=== PATIENT | male | born 1995 | race Caucasian/White ===

== ENCOUNTER → 2016-08-29 | Outpatient (CLI) | payer OTHER ==
[~2016-08-29] MED LIST: AMLO10TA2 PO; AMOX500C2 PO
--- OUTSIDE RECORDS SUMMARY | 2016-08-29 20:30 | XMS REPORT | Continuity of Care Document ---
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 PCP Insurance Providers Payer Name Policy Number Subscriber Name Relationship Unknown Advance Directives Directive Response Recorded Date/Time Advance Directives No 07/05/16 9:05am Resuscitation Status Full Code 07/05/16 9:05am Chief Complaint and Reason for Visit Chief Complaint Fever-Adult/Adol Reason for Visit Nephritic syndrome Renal insufficiency Splenomegaly [id number] Problems Active Problems Medical Problem Onset Date [...] GIVEN Prescriptions See Medication Section Referrals [facility] - Primary Care Physician Additional Instructions/Education Contact Dr. Mckinney's office first thing on Friday morning for a follow-up appointment that same day. His office number is [phone]. Drink plenty of clear liquids. Use only Tylenol for treatment of pain and fever. Avoid use of NSAID medications such as ibuprofen, aspirin or naproxen. Return to the emergency room if symptoms worsen, present to a tertiary care hospital with nephrology services such as [facility] or [facility] if symptoms are worsening. Start your amlodipine [...] - 99.5) 07/05/2016 9:05am Temperature (Calculated Celsius) 37.77107 degrees C (36.4 - 37.5) 07/05/2016 9:05am [...] 4 inches 07/05/2016 9:05am Height (Calculated Centimeters) 193.130305 cm 07/05/2016 9:05am Weight (Pounds) 173 pounds 07/05/2016 9:05am Weight (Calculated Kilograms) 78.943705 kilograms 07/05/2016 9:05am Capillary Refill Capillary Refill [...] 5-9 07/05/2016 9:20am 07/05/2016 9:49am Urine Specific [place] 1.020 1.016-1.022 07/05/2016 9:20am 2015 9:49am Urine [...] Date Attending Provider Departed Emergency Room [facility] 07/05/16 9:05am 07/05 2:51pm JESSA EDUARDO MD Recent Diagnosis
[2016-08-29 20:55] LABS: BILIRUBIN,URINE NEGATIVE (NEGATIVE); KETONES,URINE NEGATIVE (NEGATIVE); LEUKOCYTE ESTERASE ,URINE NEGATIVE (NEGATIVE); NITRITE,URINE NEGATIVE (NEGATIVE); PH,URINE 7 (5-9); PROTEIN,URINE 4+ (NEGATIVE); UROBILINOGEN,URINE NORMAL (NORMAL)
[2016-08-29 21:17] LABS: ANION GAP 10 MMOL/L (5-14); BLOOD UREA NITROGEN 28 MG/DL (7-18); BUN/CREATININE RATIO 19; CALCIUM 8.8 MG/DL (8.5-10.1); CARBON DIOXIDE 23 MMOL/L (21-32); CHLORIDE 108 MMOL/L (98-107); CREATININE SERUM 1.44 MG/DL (0.60-1.30); GFR ESTIMATED > 60; GLUCOSE 89 MG/DL (70-105); POTASSIUM 4.5 MMOL/L (3.6-5.0); SODIUM 141 MMOL/L (135-145)
== END ==
LOC: LAB 20:25
PROVIDERS: ATTEND Internal Medicine
DX: R31.29 Other microscopic hematuria (principal); R80.9 Proteinuria, unspecified; B27.90 Infectious mononucleosis, unspecified without complication
CPT/HCPCS: 36415; 80048; 81000; 82043; 84156

== ENCOUNTER → 2016-08-29 | Outpatient (CLI) | payer OTHER ==
--- OUTSIDE RECORDS SUMMARY | 2016-08-29 08:54 | XMS REPORT | Continuity of Care Document ---
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 PCP Insurance Providers Payer Name Policy Number Subscriber Name Relationship Unknown Advance Directives Directive Response Recorded Date/Time Advance Directives No 07/05/16 9:05am Resuscitation Status Full Code 07/05/16 9:05am Chief Complaint and Reason for Visit Chief Complaint Fever-Adult/Adol Reason for Visit Nephritic syndrome Renal insufficiency Splenomegaly [id number] Problems Active Problems Medical Problem Onset Date Status Hepatomegaly Unknown Acute Nephritic syndrome Unknown Acute Renal insufficiency Unknown Acute Splenomegaly Unknown Acute Medications Current Home Medications Medication Dose Units Route Directions Days/Qty Instructions Start Date Amlodipine Besylate 10 Mg 10 Mg Oral Daily 20 07/05/16 Social History Social History Problem Response Recorded Date/Time Alcohol Use Denies Use 07/05/2016 9:05am Recreational Drug Use No 07/05/2016 9:05am Recent Foreign Travel No 07/05/2016 9:05am Recent Infectious Disease Exposure No 07/05/2016 9:05am Hospitalization with Isolation Denies 07/05/2016 9:05am Smoking Status Never a Smoker 07/05/2016 9:05am Recent Hopitalizations No 07/05/2016 9:05am Hospitalization with Isolation Denies 07/05/2016 9:05am Query Response Start Date Stop Date Smoking Status Never a Smoker Hospital Discharge Instructions No hospital discharge instructions. Plan of Care Discharge Date 07/05/16 2:51pm Disposition 01 HOME, SELF-CARE Condition at Discharge Stable Instructions/Education Provided NO INSTRUCTIONS GIVEN Prescriptions See Medication Section Referrals [facility] - Primary Care Physician Additional Instructions/Education Contact Dr. Mckinney's office first thing on Friday morning for a follow-up appointment that same day. His office number is [phone]. Drink plenty of clear liquids. Use only Tylenol for treatment of pain and fever. Avoid use of NSAID medications such as ibuprofen, aspirin or naproxen. Return to the emergency room if symptoms worsen, present to a tertiary care hospital with nephrology services such as [facility] or [facility] if symptoms are worsening. Start your amlodipine prescription tomorrow. For further information on nephritic syndrome you may search reputable online resources. All discharge instructions reviewed with patient and/or family. Voiced understanding. Functional Status No functional status results. Allergies, Adverse Reactions, Alerts Allergen Type Severity Reaction Status Last Updated ETHANOL/ALCOHALIC BEVERAGES Allergy Intermediate HIVES Active 07/05/16 Immunizations No immunization records. Vital Signs Acute Vital Signs Vital Response Date/Time Temperature (Fahrenheit) 99.2 degrees F (97.6 - 99.5) 07/05/2016 9:05am Temperature (Calculated Celsius) 37.36972 degrees C (36.4 - 37.5) 07/05/2016 9:05am Pulse Rate (adult) 96 bpm (60 - 90) 07/05/2016 9:05am Respiratory Rate 16 bpm (12 - 24) 07/05/2016 9:05am O2 Sat by Pulse Oximetry 99 % (88 - 100) 07/05/2016 9:05am Blood Pressure 165/94 mm Hg 07/05/2016 9:05am Blood Pressure Mean 117 mm Hg 07/05/2016 9:05am Pain Numeric Pain Scale 0-No Pain 07/05/2016 9:05am Height (Feet) 6 feet 07/05/2016 9:05am Height (Inches) 4 inches 07/05/2016 9:05am Height (Calculated Centimeters) 193.239110 cm 07/05/2016 9:05am Weight (Pounds) 173 pounds 07/05/2016 9:05am Weight (Calculated Kilograms) 78.154721 kilograms 07/05/2016 9:05am Capillary Refill Capillary Refill Less Than 3 Seconds 07/05/2016 9:05am Height 6 ft 4 in Weight 173 lb Body Mass Index 21.1 kg/m^2 Results Laboratory Results Test Name Result Units Flags Reference Collection Date/Time Result Date/ Time Comments White Blood Count 4.3 10^3/uL 4.3-11.0 07/05/2016 9:20am 07/05/2016 9: 37am Red Blood Count 4.93 10^6/uL 4.35-5.85 07/05/2016 9:20am 07/05/2016 9: 37am Hemoglobin 13.7 G/DL 13.3-17.7 07/05/2016 9:20am 07/05/2016 9:37am Hematocrit 37 % L 40-54 07/05/2016 9:20am 07/05/2016 9:37am Mean Corpuscular Volume 76 FL L 80-99 07/05/2016 9:20am 07/05/2016 9: 37am Mean Corpuscular Hemoglobin 28 PG 25-34 07/05/2016 9:20am 07/05/2016 9: 37am Mean Corpuscular Hemoglobin Concent 37 G/DL H 32-36 07/05/2016 9:20am 9:37am Red Cell Distribution Width 12.9 % 10.0-14.5 07/05/2016 9:20am 2015 9:37am Platelet Count 139 10^3/uL 130-400 07/05/2016 9:20am 07/05/2016 9:37am Mean Platelet Volume 10.8 FL H 7.4-10.4 07/05/2016 9:20am 07/05/2016 9: 37am Neutrophils (%) (Auto) 54 % 42-75 07/05/2016 9:20am 07/05/2016 9:37am Lymphocytes (%) (Auto) 27 % 12-44 07/05/2016 9:20am 07/05/2016 9:37am Monocytes (%) (Auto) 15 % H 0-12 07/05/2016 9:20am 07/05/2016 9:37am Eosinophils (%) (Auto) 1 % 0-10 07/05/2016 9:20am 07/05/2016 9:37am Basophils (%) (Auto) 2 % 0-10 07/05/2016 9:20am 07/05/2016 9:37am Neutrophils # (Auto) 2.3 X 10^3 1.8-7.8 07/05/2016 9:20am 07/05/2016 9: 37am Lymphocytes # (Auto) 1.2 X 10^3 1.0-4.0 07/05/2016 9:20am 07/05/2016 9: 37am Monocytes # (Auto) 0.7 X 10^3 0.0-1.0 07/05/2016 9:20am 07/05/2016 9: 37am Eosinophils # (Auto) 0.1 10^3/uL 0.0-0.3 07/05/2016 9:20am 07/05/2016 9 :37am Basophils # (Auto) 0.1 10^3/uL 0.0-0.1 07/05/2016 9:20am 07/05/2016 9: 37am Smear Scan OCCASIONAL REACTIVE LYMPH OBSERVED DURING SCAN. 2015 9:20am 07/05/2016 9:55am Erythrocyte Sedimentation Rate 32 MM/HR H 0-15 07/05/2016 9:20am 2015 10:01am Urine Color YELLOW 07/05/2016 9:20am 07/05/2016 9:49am Urine Clarity CLEAR 07/05/2016 9:20am 07/05/2016 9:49am Urine pH 6 5-9 07/05/2016 9:20am 07/05/2016 9:49am Urine Specific [place] 1.020 1.016-1.022 07/05/2016 9:20am 2015 9:49am Urine Protein 4+ NEGATIVE 07/05/2016 9:20am 07/05/2016 9:49am Urine Glucose (UA) NEGATIVE NEGATIVE 07/05/2016 9:20am 07/05/2016 9: 49am Urine RBC (Auto) 5+ * NEGATIVE 07/05/2016 9:2007/05/2016 9:49am Urine Ketones NEGATIVE NEGATIVE 07/05/2016 9:20am 07/05/2016 9:49am Urine Nitrite NEGATIVE NEGATIVE 07/05/2016 9:20am 07/05/2016 9:49am Urine Bilirubin NEGATIVE NEGATIVE 07/05/2016 9:20am 07/05/2016 9: 49am Urine Urobilinogen NORMAL MG/DL NORMAL 07/05/2016 9:20am 07/05/2016 9: 49am Urine Leukocyte Esterase 1+ * NEGATIVE 07/05/2016 9:2007/05/2016 9: 49am Urine RBC TNTC /HPF * 07/05/2016 9:20am 07/05/2016 9:49am Urine WBC 5-10 /HPF * 07/05/2016 9:20am 07/05/2016 9:49am Urine Bacteria FEW /HPF * 07/05/2016 9:20am 07/05/2016 9:49am Urine Crystals NONE /LPF 07/05/2016 9:20am 07/05/2016 9:49am Urine Casts NONE /LPF 07/05/2016 9:20am 07/05/2016 9:49am Urine Mucus NEGATIVE /LPF 07/05/2016 9:20am 07/05/2016 9:49am Urine Yeast FEW /HPF * 07/05/2016 9:20am 07/05/2016 9:49am Urine Culture Indicated YES 07/05/2016 9:2007/05/2016 9:49am Urine Protein 647 MG/DL H 6-12 07/05/2016 9:2007/05/2016 12:57pm Urine Creatinine 152 MG/DL H 30-125 07/05/2016 9:20am 07/05/2016 12:57pm Urine Protein/Creatinine Ratio 4.26 07/05/2016 9:20am 07/05/2016 12 :57pm Sodium Level 141 MMOL/L 135-145 07/05/2016 9:20am 07/05/2016 9:52am Potassium Level 4.0 MMOL/L 3.6-5.0 07/05/2016 9:20am 07/05/2016 9:52am Chloride Level 108 MMOL/L H 98-107 07/05/2016 9:20am 07/05/2016 9:52am Carbon Dioxide Level 24 MMOL/L 21-32 07/05/2016 9:20am 07/05/2016 9: 52am Anion Gap 9 MMOL/L 5-14 07/05/2016 9:20am 07/05/2016 9:52am Blood Urea Nitrogen 13 MG/DL -18 07/05/2016 9:20am 07/05/2016 9:52am Creatinine 1.40 MG/DL H 0.60-1.30 07/05/2016 9:20am 07/05/2016 9:52am BUN/Creatinine Ratio 9 07/05/2016 9:20am 07/05/2016 9:52am Estimat Glomerular Filtration Rate > 60 07/05/2016 9:20am 2015 9:52am GFR INTERPRETIVE DATA UNITS FOR ESTIMATED GFR (eGFR): mL/min/1.73 M2 REFERENCE RANGE FOR ESTIMATED GFR (eGFR) eGFR NORMAL eGFR >60 MODERATELY DECREASED eGFR 30-59 SEVERLY DECREASED eGFR 15-29 KIDNEY FAILURE <15 (OR DIALYSIS) Glucose Level 94 MG/DL 70-105 07/05/2016 9:20am 07/05/2016 9:52am Calcium Level 8.6 MG/DL 8.5-10.1 07/05/2016 9:20am 07/05/2016 9:52am Total Bilirubin 0.5 MG/DL 0.1-1.0 07/05/2016 9:20am 07/05/2016 9:52am Alkaline Phosphatase 58 U/L 40-136 07/05/2016 9:20am 07/05/2016 9:52am Aspartate Amino Transf (AST/SGOT) 35 U/L H 5-34 07/05/2016 9:20am 2015 9:52am Alanine Aminotransferase (ALT/SGPT) 26 U/L 0-55 07/05/2016 9:20am 07/05 9:52am Total Creatine Kinase 222 U/L H 30-200 07/05/2016 9:20am 07/05/2016 9: 52am Total Protein 5.6 G/DL L 6.4-8.2 07/05/2016 9:20am 07/05/2016 9:52am Albumin 2.9 G/DL L 3.2-4.5 07/05/2016 9:20am 07/05/2016 9:52am C-Reactive Protein High Sensitivity 1.97 MG/DL H 0.00-0.50 07/05/2016 9: 20am 07/05/2016 9:52am Group A Streptococcus Screen NEGATIVE NEGATIVE 07/05/2016 9:20am 9:40am Procedures No known history of procedures. Encounters Encounter Location Arrival/Admit Date Discharge/Depart Date Attending Provider Departed Emergency Room [facility] 07/05/16 9:05am 07/05 2:51pm JESSA EDUARDO MD Recent Diagnosis
== END ==
LOC: LAB 08:48
PROVIDERS: ATTEND Internal Medicine Hematology & Oncology
DX: N05.9 Unspecified nephritic syndrome with unspecified morphologic changes (principal); N02.8 Recurrent and persistent hematuria with other morphologic changes
CPT/HCPCS: 36415; 86308; 86644; 86645